=== PATIENT | female | born 1960 ===

== ENCOUNTER 2017-05-28 01:45 | Emergency (ER) | payer OTHER ==
[2017-05-28 01:59] VITALS: BP 133/89; PULSE 104; TEMP 98.8; O2SAT 96
--- NOTE | 2017-05-28 02:08 | C.PDOC ---
History Of Present Illness 56 year old female who presents to the ER seeking pain medication for her back and chest pain. Patient recently left [facility] where she signed out AMA after she was advised to stay for admission for her chest pain. Patient is known for frequently seeking drugs. Denies SOB, nausea, or vomiting. Chief Complaint (Nursing): Cough, Cold, Congestion History Per: Patient History/Exam Limitations: no limitations Onset/Duration Of Symptoms: Hrs Current Symptoms Are (Timing): Still Present Reports Recently: Seen In ED Recent travel outside of the [place]: No Past Medical History Reviewed: Historical Data, Nursing Documentation, Vital Signs Vital Signs: Last Vital Signs Temp 98.8 F 05/28/17 01:54 Pulse 104 H 05/28/17 01:54 Resp 18 05/28/17 02:33 BP 133/89 05/28/17 01:54 Pulse Ox 96 05/28/17 02:08 - Medical History PMH: Anxiety, Asthma, COPD, Depression, Diabetes (type II), Gastritis, HTN, Hypercholesterolemia, Hyperlipidemia, Pancreatitis Surgical History: Cholecystectomy, Endoscopy - [facility] Procedures APPLICATION OF SPLINT (04/14/15) CLOSURE SKIN & SUBCUTANEOUS NEC (11/30/13) INJECT/INFUSE NEC (07/08/15) NEBULIZER THERAPY (08/23/14) TETANUS TOXOID ADMINIST (11/30/13) Family History: States: Unknown Family Hx - Social History Hx Alcohol Use: No Hx Substance Use: No - Immunization History Hx Tetanus Toxoid Vaccination: No Hx Influenza Vaccination: No Hx Pneumococcal Vaccination: No Review Of Systems Except As Marked, All Systems Reviewed And Found Negative. Cardiovascular: Positive for: Chest Pain Respiratory: Negative for: Shortness of Breath Gastrointestinal: Negative for: Nausea Musculoskeletal: Positive for: Back Pain Physical Exam - Physical Exam Appears: Non-toxic, No Acute Distress Skin: Normal Color, Warm, Dry Head: Atraumatic, Normacephalic Eye(s): bilateral: Normal Inspection, EOMI Oral Mucosa: Moist Respiratory: Other (Speaking in complete sentences. No respiratory distress.) Neurological/Psych: Oriented x3, Normal Speech, Normal Cognition Additional Physical Exam Comments: Patient is refusing exam ED Course And Treatment O2 Sat by Pulse Oximetry: 96 (Room air) Pulse Ox Interpretation: Normal Medical Decision Making Medical Decision Making: Patient is refusing exam and is refusing to leave until she gets pain medication. Patient advised on pain medication policy, offered motrin and tylenol; however, patient declined. Disposition Counseled Patient/Family Regarding: Diagnosis, Need For Followup - Disposition Referrals: YOUR,PMD [Other] Disposition: HOME/ ROUTINE Disposition Time: 02:07 Condition: GOOD Instructions: Chest Pain (ED) Forms: [employer] (Togolese) - Clinical Impression Clinical Impression: Chest pain - Scribe Statement The provider has reviewed the documentation as recorded by the Scribnaveen Singleton All medical record entries made by the Vandanaibnaveen were at my direction and personally dictated by me. I have reviewed the chart and agree that the record accurately reflects my personal performance of the history, physical exam, medical decision making, and the department course for this patient. I have also personally directed, reviewed, and agree with the discharge instructions and disposition.
[2017-05-28 02:37] VITALS: RESP 18
== END 2017-05-28 02:23 | disposition home or self-care (01) ==
LOC: C.ER 01:45
DX: R07.9 Chest pain, unspecified (principal)